=== PATIENT | male | born 1985 | race Caucasian/White ===

== ENCOUNTER 2018-09-10 15:25 | Emergency (ER) | payer BC ==
[2018-09-10 16:47] LABS: ADD UMIC YES; UR ASCORBIC ACID 40 mg/dL (NEGATIVE); UR BILIRUBIN (Dip) NEGATIVE (NEGATIVE); UR BLOOD (Dip) NEGATIVE (NEGATIVE); UR CLARITY SLIGHTLY CLOUDY (CLEAR); UR COLOR AMBER (YELLOW); UR GLUCOSE (Dip) NEGATIVE (NEGATIVE); UR KETONES (Dip) NEGATIVE (NEGATIVE); UR LEUKOCYTE ESTERASE (Dip) 1+ Leu/ul (NEGATIVE); UR MUCUS MODERATE /HPF (NONE SEEN); UR NITRITE (Dip) NEGATIVE (NEGATIVE); UR RBC 2 /HPF (0-5); UR SPECIFIC GRAVITY (Dip) 1.029 (1.003-1.030); UR SQUAMOUS EPITHELIAL CELL FEW /HPF (FEW); UR TOTAL PROTEIN (Dip) NEGATIVE (NEGATIVE); UR UROBILINOGEN (Dip) 2+ mg/dL (NEGATIVE); UR WBC 14 /HPF (0-5)
[2018-09-10] MEDS: LIDOCAINE 1% (MPF) 5 ML VIAL INFIL (18:04)
[2018-09-10] MEDS: CEFTRIAXONE 250 MG INJ IM (18:04)
[2018-09-10] MEDS: AZITHROMYCIN 500 MG TAB PO (18:04)
== END 2018-09-10 18:10 | disposition home or self-care (01) ==
LOC: FTE 15:25
DX: N50.89 Other specified disorders of the male genital organs (principal)
CPT/HCPCS: 76870; 81001; 96372; 99285-25